=== PATIENT | female | born 1980 | race Caucasian/White ===

== ENCOUNTER 2024-11-30 17:32 | Emergency (ER) | payer OTHER ==
[2024-11-30] MEDS ORDERED: SODIUM CHLORIDE 0.9% 1,000 ML IV ONE (17:45)
[2024-11-30 17:50] VITALS: BP 151/83; PULSE 75; RESP 18; TEMP 98.2
--- NOTE | 2024-11-30 17:51 | ED ---
Recheck HPI - General Source: patient, EMS, RN notes reviewed Mode of arrival: EMS Limitations: no limitations <Sonia Spears - Last Filed: 11/30/24 17:50> - General Source: patient, EMS, RN notes reviewed, old records reviewed Mode of arrival: EMS Limitations: no limitations - History of Present Illness MD Complaint: wound re-check -: days(s) Returns Today for: Called Because of Abnormal Lab/Test, persistent/worsening pain related to initial visit Symptoms Since Prior Visit: worsening pain Associated Symptoms: none Treatments Prior to Arrival: other <Champ Hernandez - Last Filed: 11/30/24 23:32> - General Chief Complaint: Recheck/Abnormal Lab/Rx Stated Complaint: Heat exhaustion Time Seen by Provider: 11/30/24 17:40 - History of Present Illness Initial Comments: Quick Note: This is a 44-year-old female who presents to the emergency department for concerns of heat exhaustion. Patient is currently living in her vehicle and had the AC on, but does not believe it is strong enough. States that she feels very weak, hot, and nauseous. Denies any chest pain or shortness of breath. (Sonia Spears) This is a 44-year-old female to the ER for evaluation of weakness, patient is living in her vehicle superhot today decreasing oral intake, feels weak here in the ER with generalized weakness and fatigue with mild sweating (Champ Hernandez) - Related Data Allergies Allergy/AdvReac Type Severity Reaction Status Date / Time amoxicillin AdvReac Unknown Verified 11/30/24 17:50 Review of Systems ROS Other: All systems not noted in ROS Statement are negative. <Sonia Spears - Last Filed: 11/30/24 17:50> ROS Other: All systems not noted in ROS Statement are negative. <Champ Hernandez - Last Filed: 11/30/24 23:32> ROS Statement: Those systems with pertinent positive or pertinent negative responses have been documented in the HPI. Past Medical History Additional Past Medical History / Comment(s): infected gallbladder-not removed at this History of Any Multi-Drug Resistant Organisms: None Reported Past Surgical History: No Surgical Hx Reported Past Psychological History: Anxiety, Bipolar, Depression Smoking Status: Current every day smoker, Vaper Past Alcohol Use History: None Reported Past Drug Use History: None Reported <Sonia Spears - Last Filed: 11/30/24 17:50> General Exam <Sonia Spears - Last Filed: 11/30/24 17:50> General appearance: alert, in no apparent distress Head exam: Present: atraumatic, normocephalic, normal inspection Eye exam: Present: normal appearance, PERRL, EOMI. Absent: scleral icterus, conjunctival injection, periorbital swelling ENT exam: Present: normal exam, mucous membranes moist Neck exam: Present: normal inspection. Absent: tenderness, meningismus, lymphadenopathy Respiratory exam: Present: normal lung sounds bilaterally. Absent: respiratory distress, wheezes, rales, rhonchi, stridor Cardiovascular Exam: Present: regular rate, normal rhythm, normal heart sounds. Absent: systolic murmur, diastolic murmur, rubs, gallop, clicks GI/Abdominal exam: Present: soft, normal bowel sounds. Absent: distended, tenderness, guarding, rebound, rigid Extremities exam: Present: normal inspection, full ROM, normal capillary refill. Absent: tenderness, pedal edema, joint swelling, calf tenderness Back exam: Present: normal inspection Neurological exam: Present: alert, oriented X3, CN II-XII intact Psychiatric exam: Present: normal affect, normal mood Skin exam: Present: warm, dry, intact, normal color. Absent: rash <Champ Hernandez - Last Filed: 11/30/24 23:32> - General Exam Comments Initial Comments: Visual Physical Exam Vital signs reviewed General: Well-appearing, nontoxic, no acute distress. Head: Normocephalic, atraumatic Eyes: PERRLA, EOMI ENT: Airway patent Chest: Nonlabored breathing Skin: No visual rash, normal skin tone Neuro: Alert and oriented 3 Musculoskeletal: No gross abnormalities (Sonia Spears) Course <Champ Hernandez - Last Filed: 11/30/24 23:32> Vital Signs 11/30/24 17:44 Temperature 98.2 F Pulse Rate 75 Respiratory 18 Rate Blood Pressure 151/83 O2 Sat by Pulse 97 Oximetry - Reevaluation(s) Reevaluation #1: 11/30/24 23:31 Medical record is reviewed (Champ Hernandez) Reevaluation #2: 11/30/24 23:31 Patient's symptoms improved (Champ Hernandez) Reevaluation #3: 11/30/24 23:31 Symptoms improved (Champ Hernandez) Reevaluation #4: Was pt. sent in by a medical professional or institution (, GENEV[facility], PRODUCTION RECOVERY OPERATOR, urgent care, hospital, or fci...) When possible be specific @ -no Did you speak to anyone other than the patient for history (EMS, parent, family, police, friend...)? What history was obtained from this source @ -no Did you review nursing and triage notes (agree or disagree)? Why? @ -agree Are old charts reviewed (outside hosp., previous admission, EMS record, old EKG, old radiological studies, urgent care reports/EKG's, fci records)? Report findings @ -yes Differential Diagnosis (chest pain, altered mental status, abdominal pain women, abdominal pain men, vaginal bleeding, weakness, fever, dyspnea, syncope, headache, dizziness, GI bleed, back pain, seizure, CVA, palpatations, mental health, musculoskeletal)? @ -prior EKG interpreted by me (3pts min.). @ -yes X-rays interpreted by me (1pt min.). @ -yes negative for acute disease CT interpreted by me (1pt min.). @ -no U/S interpreted by me (1pt. min.). @ -no What testing was considered but not performed or refused? (CT, X-rays, U/S, labs)? Why? @ -none What meds were considered but not given or refused? Why? @ -none Did you discuss the management of the patient with other professionals (professionals i.e. , GENEVA, PRODUCTION RECOVERY OPERATOR, lab, RT, psych nurse, social sciences research scientist, hot top liner helper, teacher, money position officer, counter caser)? Give summary @ -no Was smoking cessation discussed for >3mins.? @ -no Was critical care preformed (if so, how long)? @ -no Were there social determinants of health that impacted care today? How? (Homelessness, low income, unemployed, alcoholism, drug addiction, transpo rtation, low edu. Level, literacy, decrease access to med. care, fci, rehab)? @ -none Was there de-escalation of care discussed even if they declined (Discuss DNR or withdrawal of care, Hospice)? DNR status @ -no What co-morbidities impacted this encounter? (DM, HTN, Smoking, COPD, CAD, Cancer, CVA, ARF, Chemo, Hep., AIDS, mental health diagnosis, sleep apnea, morbid obesity)? @ -none Was patient admitted / discharged? Hospital course, mention meds given and route, prescriptions, significant lab abnormalities, going to OR and other pertinent info. @ - Undiagnosed new problem with uncertain prognosis? @ -no Drug Therapy requiring intensive monitoring for toxicity (Heparin, Nitro, Insul in, Cardizem)? @ -no Were any procedures done? @ -no Diagnosis/symptom? @ - Acute, or Chronic, or Acute on Chronic? @ -Acute Uncomplicated (without systemic symptoms) or Complicated (systemic symptoms)? @ -Complicated Side effects of treatment? @ -no Exacerbation, Progression, or Severe Exacerbation? @ -exacerbation Poses a threat to life or bodily function? How? (Chest pain, USA, [place], pneumonia, PE, COPD, DKA, ARF, appy, cholecystitis, CVA, Diverticulitis, Homicidal, Suicidal, threat to staff... and all critical care pts) @ -yes (Champ Hernandez) Medical Decision Making <Sonia Spears - Last Filed: 11/30/24 17:50> - Lab Data Result diagrams: 11/30/24 21:03 11/30/24 21:03 <Champ Hernandez - Last Filed: 11/30/24 23:32> - Medical Decision Making I performed the QuickNote portion of this chart. Signed Sonia Spears PA-C. (Sonia Spears) 44 female feels improved here in the ER prefers discharge home at this time (Champ Hernandez) - Lab Data Lab Results 11/30/24 11/30/24 Range/Units 21:03 21:03 WBC 7.13 (4.50-10.00) 10*3/uL RBC 4.64 (4.10-5.20) 10*6/uL Hgb 14.3 (12.0-15.0) g/dL Hct 41.0 (37.2-46.3) % MCV 88.4 (80.0-97.0) fL MCH 30.8 (27.0-32.0) pg MCHC 34.9 (32.0-37.0) g/dL Plt Count 258 (140-440) 10*3/uL MPV 10.1 (9.5-12.2) fL Immature Gran % (Auto) 0.3 % Neutrophils % 62.0 % Lymphocytes % 30.7 % Monocytes % 6.6 % Eosinophils % 0.3 % Basophils % 0.1 % Immature Gran # 0.02 (0.00-0.04) 10*3/uL Neutrophils # 4.42 (1.80-7.70) 10*3/uL Lymphocytes # 2.19 (0.90-5.00) 10*3/uL Monocytes # 0.47 (0.20-1.00) 10*3/uL Eosinophils # 0.02 L (0.04-0.35) 10*3/uL Basophils # 0.01 (0.00-0.10) 10*3/uL Immature Plt Fraction 3.1 (1.1-6.1) % Sodium 140 (137-145) mmol/L Potassium 3.5 (3.5-5.1) mmol/L Chloride 107 (98-107) mmol/L Carbon Dioxide 26 (22-30) mmol/L Anion Gap 7 mmol/L BUN 16 (7-17) mg/dL Creatinine 0.65 (0.52-1.04) mg/dL Est GFR (CKD-EPI)AfAm >90 (>60 ml/min/1.73 sqM) Est GFR (CKD-EPI)NonAf >90 (>60 ml/min/1.73 sqM) Glucose 95 (74-99) mg/dL Calcium 9.1 (8.4-10.2) mg/dL Total Bilirubin 0.4 (0.2-1.3) mg/dL AST 31 (14-36) U/L ALT 38 H (4-34) U/L Alkaline Phosphatase 68 (38-126) U/L Total Protein 6.8 (6.3-8.2) g/dL Albumin 4.2 (3.5-5.0) g/dL Disposition <Sonia Spears - Last Filed: 11/30/24 17:50> Is patient prescribed a controlled substance at d/c from ED?: No Time of Disposition: 22:20 <Champ Hernandez - Last Filed: 11/30/24 23:32> Clinical Impression: Dehydration Disposition: HOME SELF-CARE Condition: Good Instructions (If sedation given, give patient instructions): Dehydration (ED) Referrals: Nonstaff,Physician [Primary Care Provider] - 1-2 days
[2024-11-30 21:22] LABS: Basophils # (A) 0.01 10*3/uL (0.00-0.10); Basophils % (A) 0.1 %; Eosinophils # (A) 0.02 10*3/uL (0.04-0.35); Eosinophils % (A) 0.3 %; HGB 14.3 g/dL (12.0-15.0); Immature Platelet Fraction 3.1 % (1.1-6.1); Lymphocytes # (A) 2.19 10*3/uL (0.90-5.00); Lymphocytes % (A) 30.7 %; MCH 30.8 pg (27.0-32.0); MCHC 34.9 g/dL (32.0-37.0); MCV 88.4 fL (80.0-97.0); Mean Platelet Volume 10.1 fL (9.5-12.2); Monocytes # (A) 0.47 10*3/uL (0.20-1.00); Monocytes % (A) 6.6 %; Neutrophils # (A) 4.42 10*3/uL (1.80-7.70); Platelet Count 258 10*3/uL (140-440); RBC 4.64 10*6/uL (4.10-5.20); RDW 13.5 % (11.5-14.5); WBC 7.13 10*3/uL (4.50-10.00)
[2024-11-30 21:37] LABS: ALT 38 U/L (4-34); AST 31 U/L (14-36); African American GFR (CKD) >90 (>60 ml/min/1.73 sqM); Albumin 4.2 g/dL (3.5-5.0); Alkaline Phosphatase 68 U/L (38-126); Anion Gap 7 mmol/L; Blood Urea Nitrogen 16 mg/dL (7-17); Calcium 9.1 mg/dL (8.4-10.2); Carbon Dioxide 26 mmol/L (22-30); Chloride 107 mmol/L (98-107); Glucose 95 mg/dL (74-99); Non-African American GFR(CKD) >90 (>60 ml/min/1.73 sqM); Potassium 3.5 mmol/L (3.5-5.1); Sodium 140 mmol/L (137-145); Total Bilirubin 0.4 mg/dL (0.2-1.3); Total Protein 6.8 g/dL (6.3-8.2)
== END 2024-11-30 22:00 | disposition home or self-care (01) ==
LOC: EC 17:32
DX: E86.0 Dehydration (principal); F17.290 Nicotine dependence, other tobacco product, uncomplicated; Z88.0 Allergy status to penicillin
CPT/HCPCS: 36415; 80053; 85025; 93005; 99283

== ENCOUNTER 2024-12-01 15:00 | Emergency (ER) | payer OTHER ==
[2024-12-01 15:54] VITALS: BP 136/84; PULSE 73; RESP 20; TEMP 98
--- NOTE | 2024-12-01 16:08 | ED ---
General Adult HPI - General Chief complaint: Nausea/Vomiting/Diarrhea Stated complaint: weakness Time Seen by Provider: 12/01/24 15:53 Source: patient Mode of arrival: ambulatory Limitations: no limitations - History of Present Illness Initial comments: 44-year-old female presenting with concerns after heat exposure. Patient states that she is feeling nauseous. Patient is currently homeless and lives in her car with her mother. She does not have any vomiting. No chest pain or abdominal pain. She was seen here yesterday for the same complaint, she was given IV fluids and labs were checked which showed some mild dehydration. Patient was receiving IV fluids while in our waiting room. She is showing no acute signs of distress and vital signs are stable. - Related Data Allergies Allergy/AdvReac Type Severity Reaction Status Date / Time amoxicillin AdvReac Unknown Verified 12/01/24 15:55 Review of Systems ROS Statement: Those systems with pertinent positive or pertinent negative responses have been documented in the HPI. ROS Other: All systems not noted in ROS Statement are negative. Past Medical History Additional Past Medical History / Comment(s): infected gallbladder-not removed at this History of Any Multi-Drug Resistant Organisms: None Reported Past Surgical History: No Surgical Hx Reported Past Psychological History: Anxiety, Bipolar, Depression Smoking Status: Current every day smoker, Vaper Past Alcohol Use History: None Reported Past Drug Use History: None Reported General Exam Limitations: no limitations General appearance: alert, in no apparent distress Head exam: Present: atraumatic, normocephalic, normal inspection Eye exam: Present: normal appearance, EOMI Neck exam: Present: normal inspection. Absent: meningismus Respiratory exam: Absent: respiratory distress, stridor Cardiovascular Exam: Present: regular rate Neurological exam: Present: alert, oriented X3 Psychiatric exam: Present: normal affect, normal mood Skin exam: Present: warm, dry, normal color Course Vital Signs 12/01/24 15:52 Temperature 98 F Pulse Rate 73 Respiratory 20 Rate Blood Pressure 136/84 O2 Sat by Pulse 95 Oximetry Medical Decision Making - Medical Decision Making Was pt. sent in by a medical professional or institution (, PA, INTERNET ASSESSOR, urgent care, hospital, or [facility]...) When possible be specific @ -No Did you speak to anyone other than the patient for history (EMS, parent, family, police, friend...)? What history was obtained from this source @ -No Did you review nursing and triage notes (agree or disagree)? Why? @ -I reviewed and agree with nursing and triage notes Were old charts reviewed (outside hosp., previous admission, EMS record, old EKG, old radiological studies, urgent care reports/EKG's, [facility] records)? Report findings @ -Reviewed yesterday's visit including labs Differential Diagnosis (chest pain, altered mental status, abdominal pain women, abdominal pain men, vaginal bleeding, weakness, fever, dyspnea, syncope, headache, dizziness, GI bleed, back pain, seizure, CVA, palpatations, mental he alth, musculoskeletal)? @ -MDM Differential Weakness: Hypoglycemia, shock, sepsis, hyponatremia, anemia, infection, VT, ETOH, adverse medicine reaction, overdose, stroke. ... This is not meant to be an all- inclusive list EKG interpreted by me (3pts min.). @ -As above X-rays interpreted by me (1pt min.). @ -None done CT interpreted by me (1pt min.). @ -None done U/S interpreted by me (1pt. min.). @ -None done What testing was considered but not performed or refused? (CT, X-rays, U/S, labs)? Why? @ -None What meds were considered but not given or refused? Why? @ -None Did you discuss the management of the patient with other professionals (professionals i.e. , PA, INTERNET ASSESSOR, lab, RT, psych nurse, social organization professor, belt and link assembly supervisor, teacher, credit officer, nurse case management)? Give summary @ -No Was smoking cessation discussed for >3mins.? @ -No Was critical care preformed (if so, how long)? @ -No Were there social determinants of health that impacted care today? How? (Homelessness, low income, unemployed, alcoholism, drug addiction, transportation, low edu. Level, literacy, decrease access to med. care, [facility], rehab)? @ -No Was there de-escalation of care discussed even if they declined (Discuss DNR or withdrawal of care, Hospice)? DNR status @ -No What co-morbidities impacted this encounter? (DM, HTN, Smoking, COPD, CAD, Cancer, CVA, ARF, Chemo, Hep., AIDS, mental health diagnosis, sleep apnea, morbid obesity)? @ -None Was patient admitted / discharged? Hospital course, mention meds given and route, prescriptions, significant lab abnormalities, going to OR and other pertinent info. @ -44-year-old female presenting with chief complaint of nausea and heat exposure. She is currently homeless and lives in her car. Vital signs are stable and the patient is showing no acute signs of distress. She was seen here yesterday for same complaint vitals and labs were reviewed which are stable. Patient can be discharged. Provided with suggestions for shelters and public areas with air conditioning that she can utilize. Follow-up with PCP. Report back to ER with any new or worsening symptoms. Discussed return parameters and answered all questions. Patient conveyed verbal understanding and agreed to the plan. I discussed this case in detail with my attending Dr. Raymond Undiagnosed new problem with uncertain prognosis? @ -No Drug Therapy requiring intensive monitoring for toxicity (Heparin, Nitro, Insulin, Cardizem)? @ -No Were any procedures done? @ -No Diagnosis/symptom? @ -Heat exposure Acute, or Chronic, or Acute on Chronic? @ -Acute Uncomplicated (without systemic symptoms) or Complicated (systemic symptoms)? @ -Uncomplicated Side effects of treatment? @ -No Exacerbation, Progression, or Severe Exacerbation? @ -No Poses a threat to life or bodily function? How? (Chest pain, USA, [place], pneumonia, PE, COPD, DKA, ARF, appy, cholecystitis, CVA, Diverticulitis, Homicidal, Suicidal, threat to staff... and all critical care pts) @ -Unlikely Disposition Clinical Impression: Heat exposure Disposition: HOME SELF-CARE Condition: Fair Instructions (If sedation given, give patient instructions): Heat Exhaustion (ED) Additional Instructions: Follow-up with PCP. Report back to ER with any new or worsening symptoms. You are provided information on shelters. Recommendations for public areas with air conditioning include the community health building, public [employer], or local mall. Is patient prescribed a controlled substance at d/c from ED?: No Referrals: Nonstaff,Physician [Primary Care Provider] - 1-2 days Forms: Arnaud Mckeon Time of Disposition: 16:08
== END 2024-12-01 17:08 | disposition home or self-care (01) ==
LOC: EC 15:00
DX: T67.5XXA Heat exhaustion, unspecified, initial encounter (principal); F17.290 Nicotine dependence, other tobacco product, uncomplicated; Z88.0 Allergy status to penicillin
CPT/HCPCS: 99284